=== PATIENT | male | born 1945 | race Caucasian/White ===

== ENCOUNTER 2017-11-16 06:40 | Day surgery (SDC) | payer MEDICARE ==
[2017-11-13 09:06] VITALS: BMI 28.7
--- NOTE | 2017-11-16 00:23 | HP ---
HISTORY OF PRESENT ILLNESS: Mr. Hernandez is a 72-year-old man is known to us for previous evaluation in lumbar back pains with what sounds to be neurogenic claudication symptoms, for which he has been t reating with physical therapy, medications, and injections which is initially helped and then more re cently have done not much with a new MRI on disk provided that reveals severe central canal stenosis at L4-L5 likely matching his symptoms well. PAST MEDICAL HISTORY: Significant for hypertension, hypercholesterolemia, diverticulosis, osteoporos is, and osteoarthritis. PAST SURGICAL HISTORY: Bilateral knee surgeries, vasectomy, prostate surgery, tonsillectomy, hemorrh oidectomy. ALLERGIES: ERYTHROMYCIN and NSAIDs. CURRENT MEDICATIONS: Lisinopril, hydrochlorothiazide, gabapentin, minocycline, atorvastatin, aspirin . PHYSICAL EXAMINATION: Patient is alert and oriented x3. Gait is severely antalgic. Lower extremity motor exam is normal. ASSESSMENT: Lumbar stenosis with neurogenic claudication. PLAN: Dr. Berumen met with the patient, reviewed imaging, and advocated for an L4-L5 decompression. H e explained to the patient the risks, benefits, and alternatives to the procedure. The patient expre ssed understanding and would like to move forward with surgery as discussed. I do believe the patien t is mentally competent and capable of making medical decisions for herself. We will move forward [facility] surgery as planned. Keanu Shannon PA-C dictating for Dr. Berumen.
[2017-11-16 07:16] LABS: Hemoglobin 15.4 g/dL (14.0-18.0); Mean Corpuscular HGB CONC 32.5 g/dL (32.0-36.0); Mean Corpuscular Hemoglobin 26.1 pg (27.0-31.0); Mean Corpuscular Volume 80.2 fl (80.0-94.0); Mean Platelet Volume 8.3 fL (7.4-10.4); Platelet Count 163 thou/uL (130-400); RBC Distribution Width 17.1 % (11.5-14.5); White Blood Cell (WBC) Count 4.8 thou/uL (4.8-10.8)
[2017-11-16] MEDS ORDERED: CEFAZOLIN/Water 2 GM/20 ML SYRINGE ONE ×2 (07:23→13:27)
[2017-11-16 07:36] LABS: Anion Gap 14 mmol/L (10-20); BUN (Urea Nitrogen) 18 mg/dL (8.4-25.7); Calc. Creatinine Clearance 95 mL/min (70-130); Calcium 9.6 mg/dL (7.8-10.44); Carbon Dioxide 24 mmol/L (23-31); Chloride 104 mmol/L (98-107); Estimated GFR-MDRD 79; Glucose 120 mg/dL (83-110); Sodium 138 mmol/L (136-145)
[2017-11-16] MEDS ORDERED: Fentanyl 250 MCG/5 ML VIAL ONE (08:55)
[2017-11-16] MEDS ORDERED: Bupivacaine HCl 0.5%/Epinephrine 1:200,000/PF 30 ml Vial ONE (09:48)
--- NOTE | 2017-11-16 10:35 | OP ---
DATE OF OPERATION: 11/16/2017 SURGEON: Arnav Berumen M.D. GE[employer]ING MACHINE SET UP OPERATOR: Arun Shannon PA-C. INDICATION: Pain. DIAGNOSIS: Lumbar stenosis. PROCEDURE PERFORMED: L4-5 lumbar decompression. ANESTHESIA: General. TECHNIQUE: The patient was brought into the operating room and placed under general anesthesia. He was flipped from a supine to a prone position on the operating room table. A linear incision was rodney nned over the L4-L5 segment. After prepping and draping and after an appropriate operative pause, th e incision was created. The soft tissues were swept away from midline. Self-retaining retractor was placed in the wound for optimal exposure. After confirming the appropriate level, C-arm fluoroscopy , an Adson rongeur was used to remove the spinous process of an L4 and the superior aspect of L5. Hi gh-speed cutting drill bit as well as 2, 3 and 4 mm Kerrisons used to perform a laminectomy. Laminec paxton was extended to include the medial aspect of the facet joints. The yellow ligament was identifi ed and subsequently removed. There was a copious amount of epidural fat present, which was identifie d on the preoperative MRI scan. We removed the epidural fat and decompressed the lateral recesses un til the L4-5 segment was decompressed. The wound was then irrigated. Hemostasis was maintained thro ughout. The wound was then closed in anatomic layers and a pressure dressing was applied. There wer e no known procedural complications.
[2017-11-16] MEDS ORDERED: Fentanyl 100 MCG/2 ML VIAL ONE ×2 (10:42→11:07)
[2017-11-16] MEDS ORDERED: ePHEDrine/0.9% NaCl/PF SYRINGE 50 mg/10 ml ONE (15:54)
[2017-11-16] MEDS ORDERED: Dexamethasone 20 MG/5 ML VIAL ONE (15:54)
[2017-11-16] MEDS ORDERED: Glycopyrrolate 0.2 MG/ML 5 ML SYRINGE ONE (15:54)
[2017-11-16] MEDS ORDERED: PROPOFOL 200 MG/20 ML VIAL ONE (15:54)
[2017-11-16] MEDS ORDERED: Lidocaine 1% PF 5 ML VIAL ONE (15:54)
[2017-11-16] MEDS ORDERED: Ondansetron HCl/PF 4 MG/2 ML Vial ONE (15:54)
== END 2017-11-16 14:14 | disposition home or self-care (01) ==
LOC: SDC 06:40
PROVIDERS: ATTEND Neurological Surgery
PROC: 00NY0ZZ Release Lumbar Spinal Cord, Open Approach (ICD-10-PCS; principal; 2017-11-16)
DX: M48.062 Spinal stenosis, lumbar region with neurogenic claudication (principal); I10 Essential (primary) hypertension; E78.00 Pure hypercholesterolemia, unspecified; M81.0 Age-related osteoporosis without current pathological fracture; M19.90 Unspecified osteoarthritis, unspecified site; Z88.1 Allergy status to other antibiotic agents; Z88.6 Allergy status to analgesic agent; Z98.890 Other specified postprocedural states
CPT/HCPCS: 36415; 80048; 85027; J0670; J1100; J2001; J2405; J2704; J3010